=== PATIENT | female | born 1945 | race American Indian/Alaskan Native ===

== ENCOUNTER 2017-05-11 08:47 | Outpatient (CLI) | payer MEDICARE ==
--- NOTE | 2017-05-11 13:43 | Mammography Report ---
BILATERAL DIGITAL SCREENING MAMMOGRAM with CAD : 05/11/17 08:47:00 CLINICAL: Routine screening. COMPARISON:08/06/15 FINDINGS: The breasts are heterogeneously dense, which may obscure small masses.Stable bilateral moderate retroareolar ductal ectasia. Bilateral benign calcifications. No mass, architectural distortion or suspicious calcifications. IMPRESSION: No mammographic evidence of malignancy. BI-RADS CATEGORY: 2 -- Benign RECOMMENDATION: Routine mammographic screening in one year. COMMENT: Patient follow-up letters are generated by our [employer] application.
== END 2017-05-11 08:48 | disposition home or self-care (01) ==
LOC: SPVWC 08:47
PROVIDERS: ATTEND Internal Medicine
DX: Z12.31 Encounter for screening mammogram for malignant neoplasm of breast (principal)
CPT/HCPCS: 77067

== ENCOUNTER 2021-08-10 09:25 | Outpatient (CLI) | payer MEDICARE ==
--- NOTE | 2021-08-11 18:02 | Mammography Report ---
DIGITAL SCREENING MAMMOGRAM WITH CAD, 08/10/2021 CLINICAL INFORMATION / INDICATION: Routine screening mammography. TECHNIQUE: Digital bilateral 2D mammography was obtained in the craniocaudal and mediolateral obliqu e projections. This examination was interpreted with the benefit of Computer-Aided Detection analysis . COMPARISON: Prior mammogram 05/11/2017 FINDINGS: STATEMENTS: The right MLO view is suboptimal as the patient did not want her Mediport compressed and in the imaged. Best possible images were obtained. Breast Density: The breasts are heterogeneously dense, which may obscure small masses. No dominant mass, suspicious calcifications, or architectural distortion in either breast. There are stable benign-appearing calcifications with scattered distribution seen in both breasts. Th ere has been no significant change compared with the prior examination. A right-sided Mediport is in place. IMPRESSION: No mammographic evidence of malignancy. Follow up recommendation: Routine yearly BI-RADS Category 2: BENIGN. A "normal" or negative report should not discourage follow up or biopsy of a clinically significant f inding. A written summary of these findings will be mailed to the patient. The patient will be entered into a mammography reporting system which will generate a reminder letter for the patient's next appointmen t at the appropriate interval. The [employer] recommends yearly mammograms starting at age 40 and continuing as l ryan as a woman is in good health. Breast MRI is recommended for women with an approximate 20-25% or greater lifetime risk of breast cancer, including women with a strong family history of breast or ova samanta cancer or who have been treated for Hodgkin's disease. Signer Name: Jia Lehman MD Signed: 08/11/2021 5:58 PM Workstation Name: [id number]
== END 2021-08-10 09:26 | disposition home or self-care (01) ==
LOC: SPVWC 09:25
PROVIDERS: ATTEND Internal Medicine
DX: Z12.31 Encounter for screening mammogram for malignant neoplasm of breast (principal); N64.89 Other specified disorders of breast
CPT/HCPCS: 77067